=== PATIENT | female | born 1970 | race Caucasian/White ===

== ENCOUNTER → 2022-02-08 11:25 | Outpatient (CLI) | payer BC, SELFPAY ==
--- NOTE | ~2022-02-08 | US_ITS ---
EXAMINATION: US transvaginal DATE: 02/08/2022 12:02 INDICATION: Left adnexal fullness, postmenopausal bleeding TECHNIQUE: Multiple endovaginal sonographic images of the pelvis were obtained. COMPARISON: None. FINDINGS: The uterus measures 8.5 x 3.8 x 4.2 cm. The endometrial complex measures 6 mm. The left ova ry is not visualized however no left adnexal abnormality is seen. The right ovary measures 2.2 x 1.3 x 2.6 cm. There is normal vascular flow in the right ovary. There is no free fluid in the pelvis. IMPRESSION: 1. No sonographic correlate for the patient's symptoms. Reviewed, dictated and finalized at location A.
== END ==
PROVIDERS: Visit Provider Nurse Practitioner
DX: N95.0 Postmenopausal bleeding (principal)
CPT/HCPCS: 76830

== ENCOUNTER 2022-08-31 01:37 | Day surgery (SDC) | payer BC, SELFPAY ==
[2022-08-18 11:54] VITALS: BMI 22.0
[2022-08-31 06:16] VITALS: BP 129/87; PULSE 79; RESP 16; TEMP 36.4; O2SAT 98
[2022-08-31] MEDS: LACTATED RINGERS 1,000 ML 150 ML IV CONT (06:20)
[2022-08-31 06:26] LABS: Glucose Point of Care 96 mg/dl (65-105)
--- NOTE | 2022-08-31 07:21 | P.PNAN_ITS ---
Anes - Initial Pre Proc Eval Procedure: Operation Date: 08/31/22 07:30 Proposed Procedures p Screening Colonoscopy - Nelson Kenny MD Date/Time: 08/31/22 07:21 Surgeon: Nelson Kenny MD Pre Op Diagnosis: neoplasm screening Patient Data Age: 52 Gender: F Height: 1.68 m Weight: 62.2 kg Last Vital Signs Temp 97.5 F L 08/31/22 06:16 Pulse 79 08/31/22 06:16 Resp 16 08/31/22 06:16 BP 129/87 08/31/22 06:16 Pulse Ox 98 08/31/22 06:16 O2 Del Method Room Air 08/31/22 06:16 Allergies Allergy/AdvReac Type Severity Reaction Status Date / Time acetaminophen Allergy Hypotension Verified 08/31/22 06:13 [From Darvocet-N] codeine Allergy Hypotension Verified 08/31/22 06:13 hydrocodone Allergy Hypotension Verified 08/31/22 06:13 Penicillins Allergy Other Verified 08/31/22 06:13 propoxyphene Allergy Hypotension Verified 08/31/22 06:13 [From Darvocet-N] Home Medications Medication Instructions Recorded Confirmed Type 5htp 1 cap PO DAILY 08/18/22 08/31/22 History calcium 600 mg capsule 600 mg PO BID 08/18/22 08/31/22 History cholecalciferol (vitamin D3) 625 625 mcg PO DAILY 08/18/22 08/31/22 History mcg (25,000 unit) capsule insulin lispro 100 unit/mL See Rx Instructions .Route .COMPLEX 08/18/22 08/31/22 History subcutaneous solution (Humalog U-100 Insulin) losartan 25 mg tablet 25 mg PO DAILY 08/18/22 08/31/22 History rosuvastatin 5 mg tablet 5 mg PO DAILY 08/18/22 08/31/22 History sennosides 8.6 mg tablet 8.6 mg PO BID 08/18/22 08/31/22 History Laboratory Tests 08/31/22 06:21 POC Capillary Glucose 96 mg/dl mg/dl (65-105) Patient hx anesthesia problems: none Family hx anesthesia problems: none Results Review: All pre-operative results and documents have been reviewed as part of the pre- operative evaluation. PMFSH Social History Social History Years smoked: 15 Smoking status: Former smoker Tobacco type: cigarettes Alcohol intake: current Drinks per week: 2 Substance use type: does not use Living arrangements: with family Spiritual care concerns: No Anes - Eval Final PreProcedure Day of Procedure 08/31/22 07:21 Patient weight: normal Heart: regular rate and rhythm Lungs: clear to auscultation Airway: Mallampati scale class II Neurological: alert and oriented Last oral intake: >/= 8 hours ASA classification: III Emergent: no Anesthetic plan: proceed Anesthesia type and monitoring: general GIVS and standard monitoring Results Review: All pre-operative results and documents have been reviewed as part of the pre-operative evaluation. Informed Consent: The patient's anesthetic plan and its attendant risks and benefits were discussed with the patient/family/POA. Questions were solicited and answers provided to the satisfaction of the patient/family/POA.
--- NOTE | 2022-08-31 07:25 | PM.HPGS ---
History of Present Illness History of Present Illness Consent: Risks, benefits, and alternatives have been discussed and questions answered. Patient agrees to proceed with procedure. Chief complaint: neoplasm screening Narrative: Peyton Gaines is a 52 year old female here for first screening colonoscopy Review of Systems Constitutional: Constitutional: Denies headache(s) and Denies weakness Eyes: Eyes: Denies blurry vision ENT: Reports Normal hearing present, Denies headache(s) and Denies neck pain Cardiovascular: Cardiovascular: Denies chest pain and Denies dyspnea Respiratory: Respiratory: Denies dyspnea Gastrointestinal: Gastrointestinal: Reports no additional gastrointestinal complaints Genitourinary: Genitourinary: Denies dysuria Musculoskeletal: Musculoskeletal: Denies neck pain Integumentary/Breasts: Skin/Breast: Denies dry skin Neurologic: Reports Normal hearing present, Denies headache(s) and Denies weakness Psychiatric: Psychiatric: Denies anxiety Endocrine: Endocrine: Denies change in body appearance Hematologic/Lymphatic: Hematologic/Lymphatic: Denies easy bleeding Allergic/Immunologic: Allergic/Immunologic: Denies urticaria PMF Past Medical History Medical History (Updated 08/31/22 @ 07:26 by Nelson Kenny MD) Colon cancer screening Social History Social History Years smoked: 15 Smoking status: Former smoker Tobacco type: cigarettes Alcohol intake: current Drinks per week: 2 Substance use type: does not use Living arrangements: with family Spiritual care concerns: No Meds Home Medications and Allergies Home Medications Medication Instructions Recorded Confirmed Type 5htp 1 cap PO DAILY 08/18/22 08/31/22 History calcium 600 mg capsule 600 mg PO BID 08/18/22 08/31/22 History cholecalciferol (vitamin D3) 625 625 mcg PO DAILY 08/18/22 08/31/22 History mcg (25,000 unit) capsule insulin lispro 100 unit/mL See Rx Instructions .Route .COMPLEX 08/18/22 08/31/22 History subcutaneous solution (Humalog U-100 Insulin) losartan 25 mg tablet 25 mg PO DAILY 08/18/22 08/31/22 History rosuvastatin 5 mg tablet 5 mg PO DAILY 08/18/22 08/31/22 History sennosides 8.6 mg tablet 8.6 mg PO BID 08/18/22 08/31/22 History Allergies Allergy/AdvReac Type Severity Reaction Status Date / Time acetaminophen Allergy Hypotension Verified 08/31/22 06:13 [From Darvocet-N] codeine Allergy Hypotension Verified 08/31/22 06:13 hydrocodone Allergy Hypotension Verified 08/31/22 06:13 Penicillins Allergy Other Verified 08/31/22 06:13 propoxyphene Allergy Hypotension Verified 08/31/22 06:13 [From Darvocet-N] Vital Signs Vital Signs - 24 hr 08/31/22 06:16 Temperature 97.5 F L Pulse Rate 79 Respiratory Rate 16 Blood Pressure 129/87 Pulse Oximetry 98 Oxygen Delivery Room Air Exam Const: General: comfortable and no acute distress HENMT: Face/Nose/Sinus: Normal nares present Eyes: General: appearance normal, both eyes and all related structures Neck: Neck: no JVD Resp: Auscultation: clear to auscultation bilaterally Cardio: Rate: regular rate Rhythm: regular rhythm GI: Inspection: non-distended GI Palp: Yes Soft to palpation Skin: General skin exam: normal color Neuro: General: gait normal Speech: normal speech Extrem: General: normal to inspection Psych: Mental Status: mental status grossly normal Assessment and Plan Assessment and plan (1) Colon cancer screening: Code(s): Z12.11 - Encounter for screening for malignant neoplasm of colon Status: Acute Assessment and Plan: colonoscopy
[2022-08-31 07:47] VITALS: BP 130/61; PULSE 76; RESP 24; O2SAT 100
[2022-08-31 07:57] VITALS: BP 145/79; PULSE 70; RESP 17; O2SAT 100
[2022-08-31 08:07] VITALS: BP 143/74; PULSE 73; RESP 19; O2SAT 100
--- NOTE | 2022-08-31 08:26 | SUR.OPER ---
BS 103 PER PT DEXCON
== END 2022-08-31 08:13 | disposition home or self-care (01) ==
PROVIDERS: Visit Provider Internal Medicine Gastroenterology
PROC: 0DJD8ZZ Inspection of Lower Intestinal Tract, Via Natural or Artificial Opening Endoscopic (ICD-10-PCS; CPT 45378; principal; 2022-08-31 07:30)
DX: Z12.11 Encounter for screening for malignant neoplasm of colon (principal); K64.8 Other hemorrhoids; Z87.891 Personal history of nicotine dependence; F10.90 Alcohol use, unspecified, uncomplicated; Z79.4 Long term (current) use of insulin; Z79.899 Other long term (current) drug therapy
CPT/HCPCS: 45378; 82948; J2704; J7120